=== PATIENT | male | born 1975 | race Caucasian/White ===

== ENCOUNTER 2017-03-18 11:44 | Emergency (ER) | payer SELFPAY ==
[2017-03-18 11:54] VITALS: BP 125/91
--- NOTE | 2017-03-18 12:03 | ERNOTE ---
Medical Problem HPI - Narrative Date of Service: 03/18/17 - General Chief Complaint: Flu Symptoms Time Seen by Provider: 03/18/17 11:56 Source: patient, RN notes reviewed Exam Limitations: no limitations - Immun/Allergies/Home Medications Immunizations: IMMUNIZATION HX Immunizations Up to Date Yes History of Influenza Vaccine No Hx Pneumococcal Vaccination No Allergies/Adverse Reactions: Allergies No Known Allergies Allergy (Unverified 03/18/17 11:54) Home Medications: HOME MEDICATIONS NK [No Home Medication] 03/18/17 [Last Taken Unknown] - History of Present History Narrative: 41 year old male ambulatory to the ED for flu like symptoms that caused him to miss work for 3 days, but have resolved. He reports that he is only here because he has to have a release to return to work. Timing: resolved prior to arrival Review of Systems - Review of Systems Constitutional: Present: recent illness. Absent: fever, fatigue, malaise EYE: Present: no symptoms reported ENT: Present: no symptoms reported Respiratory: Absent: shortness of breath, cough Cardiology: Absent: chest pain, palpitations, syncope Gastrointestinal/Abdominal: Absent: nausea, vomiting, diarrhea, abdominal pain Genitourinary: Present: no symptoms reported Musculoskeletal: Absent: muscle pain, joint pain Skin: Absent: rash, lesions Neurological: Absent: headache, dizziness/light-headedness Endocrine: Present: no symptoms reported Hematologic/Lymphatic: Present: no symptoms reported Psych: Present: no symptoms reported - Patient's Past Medical History Patient History - Medical: Other Patient History - Cardiac/Respiratory: No pertinent hx Patient History - Cancer: No Hx of Cancer Patient History - Surgical Procedures: No surgical history Patient History - Other: None - Social History Living Situations: significant other Abuse History: No History of abuse Psych History: No pertinent hx Smoking Status: Current every day smoker Have you smoked in the past 12 months: Yes Do you dip or chew tobacco: No Alcohol Use: occasionally Drug Use: none - Immunizations Immunizations Up to Date: Yes Hx Pneumococcal Vaccination: No History of Influenza Vaccine: No Physical Exam - Physical Exam General Appearance: Present: wd/wn, alert, no apparent distress Head Exam: Present: normal inspection Neck: Present: normal inspection, nontender, supple Respiratory: Present: no respiratory distress, normal breath sounds, no accessory muscle use, lungs clear Cardiovascular/Chest: Present: regular rate, rhythm, no murmur, normal peripheral pulses Extremity Exam: Present: normal inspection, normal range of motion, no edema Neurological Exam: Present: alert, oriented, normal mood/affect, no motor/ sensory deficits Skin Exam: Present: normal color, warm/dry ED Progress - Vital Signs Patient's Vital Signs:: I have reviewed the patient's vital signs. Vital Signs: Vital Signs 03/18/17 11:50 Temperature 36.7 C Pulse Rate 85 Respiratory 14 Rate Blood Pressure 125/91 O2 Sat by Pulse 96 Oximetry - Progress/Reassessment Chief Complaint: Flu Symptoms Progress:: Unchanged Departure Clinical Impression: Return to work evaluation - Departure Disposition: Home self-care Condition: Good Instructions: Form - Excuse from Work, School, or Physical Activity Additional Instructions: Follow up as needed with any new or worsening symptoms
== END 2017-03-18 12:05 | disposition home or self-care (01) ==
LOC: ER 11:44
DX: Z03.89 Encounter for observation for other suspected diseases and conditions ruled out (principal); F17.200 Nicotine dependence, unspecified, uncomplicated